=== PATIENT | female | born 1975 | race Caucasian/White ===

== ENCOUNTER → 2018-05-16 | Outpatient (CLI) | payer MEDICAID ==
[~2018-05-16] MED LIST: ACE3 PO; ASPI-692 PO; HYDR-4309 PO; IBU800 PO; IBUP600T22 PO; IBUP800T37 PO; LOR5/325 PO; METH-543 PO; ONDA4TAB PO; OXYC-865 PO; PANT40TA65 PO; TIZA4CAP3 PO; TRAM-420 PO
--- NOTE | 2018-05-19 17:25 | RADIOLOGY IMAGING REPORT ---
FACILITY: [facility] [place] PATIENT NAME: SHAKIR PALUMBO : [id number] MR: [id number] V: [id number] EXAM DATE: ORDERING PHYSICIAN: YASMIN JOHNSON TECHNOLOGIST: Alexa Romo PROCEDURE:BILATERAL DIGITAL SCREENING MAMMOGRAM WITH CAD ASSISTED INTERPRETATION & 3D TOMOSYNTHESIS COMPARISON:None this is the patient's baseline mammogram. INDICATIONS:screening FINDINGS: Moderately dense fibroglandular tissue is seen throughout the breasts. In the upper outer quadrant of the Left breast in the middle 1/3 there is a nodular density could appear an inter mammary lymph node although correlation with Left breast Ultrasound is recommended DIAGNOSTIC CATEGORY 0--INCOMPLETE: NEED ADDITIONAL IMAGING EVALUATION. RECOMMENDATIONS: ULTRASOUND: LEFT BREAST. IMPRESSION: BIRADS 0: Incomplete. Left breast Ultrasound recommended as described. Dictated by: Hien Jaime M.D. on 05/19/2018 at 15:30 Transcribed by: LUCIA on 05/19/2018 at 15:47 Approved by: Hien Jaime M.D. on 05/19/2018 at 17:24 [facility]
== END ==
LOC: MAMO 02:56 → EDSTATUS 14:04
PROVIDERS: ATTEND Physician Assistant
DX: Z12.31 Encounter for screening mammogram for malignant neoplasm of breast (principal); R92.8 Other abnormal and inconclusive findings on diagnostic imaging of breast
CPT/HCPCS: 77063; 77067

== ENCOUNTER → 2018-05-19 | Outpatient (CLI) | payer MEDICAID ==
--- NOTE | 2018-05-19 16:49 | RADIOLOGY IMAGING REPORT ---
FACILITY: [facility] PATIENT NAME: Janee Peñaloza : 1975 MR: [id number] V: [id number] EXAM DATE: ORDERING PHYSICIAN: EMMA ESCOBAR TECHNOLOGIST: Location: [facility] [place] Patient: Janee Peñaloza : 1975 Visit/Account:[id number] Date of Sevice: 05/19/2018 Exam type: SOFT TISSUE HEAD NECK History: Left neck mass getting larger over last two years Comparison: None. Findings: Numerous sonographic images were submitted right left lateral aspects of the neck. No sonographic ab normality was demonstrated in the location of patient's apparent palpable findings. There is however a 1.4 x 1.2 x 1.1 cm solid hypoechoic mildly hypervascular nodule inferior aspect the left lobe. No pathologic-appearing adenopathy was demonstrated IMPRESSION: 1. No sonographic abnormality demonstrated in location of patient's apparent palpable abnormality al owen the left-sided the neck. If this remains of clinical concern a CT of the neck with contrast is r ecommended Incidental note of a 1.4 cm mildly hypervascular solid mass left lobe of the thyroid for which ultras ound-guided fine-needle aspiration could be performed Report Dictated By: Hien Jaime MD at 05/19/2018 4:42 PM Report E-Signed By: Hien Jaime MD at 05/19/2018 4:45 PM WSN:[id number]
== END ==
LOC: US 01:14
PROVIDERS: ATTEND Physician Assistant
DX: E04.1 Nontoxic single thyroid nodule (principal)
CPT/HCPCS: 76536

== ENCOUNTER → 2018-05-21 | Outpatient (CLI) | payer MEDICAID ==
--- NOTE | 2018-05-22 08:55 | RADIOLOGY IMAGING REPORT ---
FACILITY: [facility] PATIENT NAME: SHAKIR PALUMBO : [id number] MR: [id number] V: [id number] EXAM DATE: [id number] ORDERING PHYSICIAN: EMMA ESCOBAR TECHNOLOGIST: Greyson Ramirez RDMS, RD PROCEDURE:US LEFT BREAST COMPARISON:Left mammogram 05/16/18. INDICATIONS:FURTHER EVAL FINDINGS: There are multiple small cysts identified in the upper outer quadrant of the Left breast in the 2:30, 1, & 2 o'clock positions of the Left breast likely accounting for the nodular density seen on the recent mammogram. Specifically the 2 o'clock nodule measuring 7 x 5 x 5mm likely accounts for the mammographic finding. DIAGNOSTIC CATEGORY 2--BENIGN FINDING. RECOMMENDATIONS: ROUTINE MAMMOGRAM AND CLINICAL EVALUATION. IMPRESSION: BIRADS 2: Benign finding. There are multiple cysts in the upper outer quadrant of the Left breast likely accounting for the mammographic findings. Dictated by: Hien Jaime M.D. on 05/21/2018 at 15:59 Transcribed by: LUCIA on 05/22/2018 at 7:56 Approved by: Hien Jaime M.D. on 05/22/2018 at 8:54 [facility]
== END ==
LOC: US 14:53
PROVIDERS: ATTEND Physician Assistant
DX: N60.02 Solitary cyst of left breast (principal)

== ENCOUNTER → 2018-05-26 | Outpatient (CLI) | payer MEDICAID ==
[2018-05-26 12:10] LABS: INR 0.94
--- NOTE | 2018-05-26 15:33 | RADIOLOGY IMAGING REPORT ---
FACILITY: [facility] PATIENT NAME: Janee Peñaloza : 1975 MR: [id number] V: [id number] EXAM DATE: ORDERING PHYSICIAN: EMMA ESCOBAR TECHNOLOGIST: Location: [facility] [place] Patient: Janee Peñaloza : 1975 Visit/Account:[id number] Date of Sevice: 05/26/2018 Exam type: THYROID BIOPSY FINE NEEDLE ASP History: Left thyroid nodule Comparison: Ultrasound soft tissues of the neck May 19, 2018. Findings: Informed consent was obtained. The left-sided patient's neck was prepped and draped usual sterile fa shion. Local anesthesia was accomplished with 1% lidocaine. Under sonographic guidance four 25-gaug e FNA biopsies were obtained through the hypoechoic mass in the lateral aspect left lobe the thyroid. The samples were given to the medical technologist for processing. The procedure was accomplishe d without apparent cortication. IMPRESSION: 1. Successful sonographically guided FNA biopsy of the solid mass lateral aspect left lobe of the th yroid Report Dictated By: Hien Jaime MD at 05/26/2018 3:27 PM Report E-Signed By: Hien Jaime MD at 05/26/2018 3:29 PM SILVION:LUISA
== END ==
LOC: US 01:50
PROVIDERS: ATTEND Physician Assistant
DX: E04.1 Nontoxic single thyroid nodule (principal)
CPT/HCPCS: 10022; 36415; 76942; 85610; 88104; 88172

== ENCOUNTER → 2018-06-11 | Outpatient (CLI) | payer MEDICAID ==
[~2018-06-11] MED LIST changes: +IOPAMIDOL 76% 75 ML INFUS BTL 75 ML ONE
--- NOTE | 2018-06-11 11:31 | RADIOLOGY IMAGING REPORT ---
FACILITY: [facility] PATIENT NAME: Janee Peñaloza : 1975 MR: [id number] V: [id number] EXAM DATE: ORDERING PHYSICIAN: GANGA WARD TECHNOLOGIST: Location: [facility] [place] Patient: Janee Peñaloza : 1975 Visit/Account:[id number] Date of Sevice: 06/11/2018 EXAMINATION: CT neck without IV contrast CT neck with IV contrast HISTORY: Left neck mass overlying the sternocleidomastoid muscle. TECHNIQUE: Axial CT of the neck without and with IV contrast. Sagittal and coronal reformats. One of the following dose optimization techniques was utilized in the performance of this exam: Autom ated exposure control; adjustment of the mA and/or kV according to the patient's size; or use of an i terative reconstruction technique. Specific details can be referenced in the facility's radiology C T exam operational policy. CONTRAST: 75 mL of IV Isovue-370 COMPARISON: Thyroid ultrasound dated 05/19/2018. FINDINGS: Masses/lesions: 9 x 4.2 x 2.2 cm lipoma underlying the palpable marker in the left posterior neck. Left posterior thyroid nodule measuring approximately 1.3 cm. Airway: Normal. Lymph nodes: Negative. Vessels: Negative. Musculoskeletal / Body wall: Degenerative disc disease at C5-C6. Mild convex leftward curvature of t he cervical spine. Visualized orbits / brain / paranasal sinuses: Small retention cyst or polyp in the right maxillary s inus. Rightward nasal septal deviation. The included intracranial structures are within normal limi ts. Upper chest: Negative. IMPRESSION: 1. 9 x 4.2 x 2.2 cm lipoma in the left posterior lateral neck underlying the palpable marker. 2. Left posterior thyroid nodule measuring approximately 1.3 cm. No significant change compared wit h the recent ultrasound. 3. Degenerative disc disease at C5-C6. Mild convex leftward curvature of the cervical spine. 4. Rightward nasal septal deviation. Small retention cyst or polyp in the right maxillary sinus. Report Dictated By: Ritesh Bueno MD at 06/11/2018 11:04 AM Report E-Signed By: Ritesh Bueno MD at 06/11/2018 11:27 AM WSN:[id number]
== END ==
LOC: CT 02:27
PROVIDERS: ATTEND Surgery
DX: D17.0 Benign lipomatous neoplasm of skin and subcutaneous tissue of head, face and neck (principal); E04.1 Nontoxic single thyroid nodule; M50.322 Other cervical disc degeneration at C5-C6 level; J34.2 Deviated nasal septum; J33.8 Other polyp of sinus
CPT/HCPCS: 70492; Q9967

== ENCOUNTER 2018-07-03 09:56 | Emergency (ER) | payer MEDICAID ==
[~2018-07-03 09:56] MED LIST changes: +ASPI1TAB35 PO; +ESCI20TA38 PO; -IOPAMIDOL 76% 75 ML INFUS BTL 75 ML ONE
--- NOTE | 2018-07-03 09:58 | ER Report ---
History and Physical Time Seen By MD: 09:58 HPI/ROS CHIEF COMPLAINT: Hymenoptera sting HISTORY OF PRESENT ILLNESS: Patient is a 42-year-old female with reported past medical history who states she was moving a rug and disturbed a yellow jacket nest and received multiple stings around the neck face and upper chest. She denies any difficulty breathing but she has having a localized reaction to itching and pain. REVIEW OF SYSTEMS: Respiratory: No cough, no dyspnea. Cardiovascular: No chest pain, no palpitations. Gastrointestinal: No vomiting, no abdominal pain. Musculoskeletal: No back pain. Skin: Multiple Hymenoptera stings Allergies: Coded Allergies: hydrocodone (Verified Adverse Reaction, Mild, NAUSEA/VOMITING, 07/03/18) Home Meds Active Scripts Prednisone (PREDNISONE) 20 Mg Tablet, 60 MG PO QDAY, #12 TAB 0 Refills start on 07/04/18 Prov:UMANG LEE MD 07/03/18 Oxycodone Hcl/Acetaminophen (PERCOCET 5-325 MG TABLET) 1 Each Tablet, 1 EACH PO Q4H for PAIN, #15 TAB 0 Refills Prov:UMANG LEE MD 07/03/18 Reported Medications Aspirin/Acetaminophen/Caffeine (EXCEDRIN EXTRA STRENGTH CAPLET) 1 Each Tablet, 1 EACH PO PRN 06/17/18 Escitalopram Oxalate (LEXAPRO) 20 Mg Tablet, 20 MG PO QDAY, TAB 06/17/18 Past Medical/Surgical History Noncontributory towards this chief complaint Hx Smoking: No Smoking Status: Never Smoker Exposure to Second Hand Smoke?: No Hx Substance Use Disorder: No Hx Alcohol Use: No Constitutional Vital Sign - Last 24 Hours 07/03/18 09:59 Temp 98.8 Pulse 93 Resp 16 B/P (MAP) 131/80 Pulse Ox 95 O2 Delivery Room Air Physical Exam General Appearance: The patient is alert, has no immediate need for airway protection and no signs of toxicity. Eyes: Pupils equal and round no pallor or injection. Conjunctiva clear ENT, Mouth: Mucous membranes are moist. Respiratory: There are no retractions, lungs are clear to auscultation. Cardiovascular: Regular rate and rhythm. Gastrointestinal: Abdomen is soft and non tender, no masses, bowel sounds normal. Neurological: Awake and alert Skin: Patient with multiple Hymenoptera stings around the neck scalp and face. Patient has localized reactions. Musculoskeletal: Neck is supple non tender. Extremities are nontender, nonswollen and have full range of motion. Medical Decision Making ED Course/Re-evaluation ED Course Patient with localized reactions. We'll treat with oral Benadryl, Pepcid, prednisone and Motrin and observed in the emergency department for worsening of symptoms. 07/03/2018 10:56:14 am patient observed in the emergency department for approximately one hour. No further respiratory symptoms. She is complaining of some discomfort pain from the hymenoptera stings. Plan will be to continue [id number] Benadryl I will prescribe prednisone and a short course of opiate pain medication. Decision to Disposition Date: Jul 03, 2018 Decision to Disposition Time: 10:59 Depart Departure Latest Vital Signs Vital Signs Date Time Temp Pulse Resp B/P (MAP) Pulse Ox O2 Delivery O2 Flow Rate FiO2 07/03/18 09:59 98.8 93 16 131/80 95 Room Air Impression: Primary Impression: Hymenoptera sting Condition: Improved Disposition: HOME OR SELF-CARE Referrals: EMMA ESCOBAR PA-C (PCP) New Scripts Prednisone (PREDNISONE) 20 Mg Tablet 60 MG PO QDAY, #12 TAB 0 Refills start on 07/04/18 Prov: UMANG LEE MD 07/03/18 Oxycodone Hcl/Acetaminophen (PERCOCET 5-325 MG TABLET) 1 Each Tablet 1 EACH PO Q4H for PAIN, #15 TAB 0 Refills Prov: UMANG LEE MD 07/03/18 Patient Instructions: Insect Bite or Sting (DC) Problem Qualifiers Primary Impression: Hymenoptera sting Encounter type: initial encounter Injury intent: accidental or unintentional Qualified Codes: T63.481A - Toxic effect of venom of other arthropod, accidental (unintentional), initial encounter UMANG LEE MD Jul 03, 2018 09:58
[2018-07-03] MEDS ORDERED: predniSONE 20 MG TAB PO ONE (10:05)
[2018-07-03] MEDS ORDERED: FAMOTIDINE 20 MG TAB PO ONE (10:05)
[2018-07-03] MEDS ORDERED: diphenhydrAMINE 25 MG CAP PO ONE (10:05)
[2018-07-03] MEDS ORDERED: IBUPROFEN 600 MG TAB PO ONE (10:05)
[2018-07-03] MEDS ORDERED: OXYC-865 PO (10:57)
[2018-07-03] MEDS ORDERED: PRED20TA6 PO (10:57)
[2018-07-03 11:00] VITALS: BP 114/67
== END 2018-07-03 11:12 | disposition home or self-care (01) ==
LOC: ER 10:01
DX: T63.461A Toxic effect of venom of wasps, accidental (unintentional), initial encounter (principal)
CPT/HCPCS: 99283; J7512; Q0163

== ENCOUNTER 2018-07-24 00:10 | Day surgery (SDC) | payer MEDICAID ==
[~2018-07-24] VITALS: Ht 167.6 cm; Wt 77.6 kg
[2018-07-24] VITALS (7 sets, daily range): BP systolic 120–129; BP diastolic 63–75
[~2018-07-24 00:10] MED LIST changes: +ETHI1TAB3 PO; +PRED20TA6 PO
[2018-07-24] MEDS ORDERED: LIDOCAINE/SOD BICARB 8.4% SYR ID ONE (06:45)
[2018-07-24] MEDS ORDERED: NORMOSOL R SOLN(*) 1000 ML BAG 1,000 ML IV PRN (06:45)
[2018-07-24] MEDS ORDERED: MIDAZOLAM 2 MG/2 ML VIAL IVP PRN (06:45)
[2018-07-24] MEDS ORDERED: FAMOTIDINE 20 MG TAB PO ONE (06:45)
[2018-07-24] MEDS ORDERED: ceFAZolin(*) 2GM/D5W 50ML 50 ML IVPB ONE (06:45)
[2018-07-24] MEDS ORDERED: LIDOCAINE MPF 1% 5 ML VIAL ONE (06:56)
[2018-07-24] MEDS ORDERED: PROPOFOL EMUL(*) 10MG/ML 20 ML 20 ML ONE (06:56)
[2018-07-24] MEDS ORDERED: METOCLOPRAMIDE 10 MG/2 ML SDV ONE (06:56)
[2018-07-24] MEDS ORDERED: DEXAMETHASONE SOD 4 MG/ML VIAL ONE (06:56)
[2018-07-24] MEDS ORDERED: ONDANSETRON 4 MG/2 ML VIAL ONE ×3 (06:56→11:34)
[2018-07-24] MEDS ORDERED: fentaNYL CITR 100 MCG/2 ML AMP ONE ×3 (07:10→09:11)
[2018-07-24] MEDS ORDERED: LIDO/EPI 1% MDV 1:100,000 20ML INFIL ONE (07:19)
[2018-07-24] MEDS ORDERED: ROPIVACAINE 0.5% 20 ML VIAL ONE (07:19)
[2018-07-24] MEDS ORDERED: DOCU-416 PO (09:11)
[2018-07-24] MEDS ORDERED: OXYC-854 PO (09:11)
--- NOTE | 2018-07-24 09:14 | Short(Outpt) Discharge Summary ---
Discharge Summary Reason for Hosp/Final Diag: (1) Mass in neck Status: Chronic Hospital Course & Plan: Left neck lipoma excised without problems. Departure Discharge to: Home, Self Care Discharge Instructions Home Meds Active Scripts Docusate Sodium (COLACE) 100 Mg Capsule, 1 CAP PO BID, #30 CAP 0 Refills TAKE WITH A FULL GLASS OF WATER Prov:GANGA WARD MD 07/24/18 Oxycodone Hcl/Acet 5/325 Mg (ENDOCET 5-325 TABLET) 1 Each Tablet, 1 TAB PO Q4H PRN for PAIN, #20 TAB 0 Refills Prov:GANGA WARD MD 07/24/18 Reported Medications Ethinyl Estradiol/Drospirenone (DONTRELL 28 TABLET) 1 Each Tablet, 1 EACH PO QDAY, TAB 07/15/18 Aspirin/Acetaminophen/Caffeine (EXCEDRIN EXTRA STRENGTH CAPLET) 1 Each Tablet, 1 EACH PO PRN 06/17/18 Escitalopram Oxalate (LEXAPRO) 20 Mg Tablet, 20 MG PO QDAY, TAB 06/17/18 Follow up Referrals: General Surgery - 08/08/18 @ Surgery, General with GANGA WARD MD You have a follow up appointment scheduled with Dr. Ward on 08/08/18, at 9:00am. Diet: Regular Activity: As Tolerated Special Instructions: You may remove the white surgical dressing on 07/26/18, then you can shower. After showering, leave the incision open to air but leave the steristrips in place until they fall off on their own. Do not immerse the incision for 2 weeks. You may apply ice to the incision as often as you would like for pain control and swelling. GANGA WARD MD Jul 24, 2018 09:14
--- NOTE | 2018-07-24 09:18 | Post Operative Progress Note ---
Post Operative Progress Note Date: Jul 24, 2018 Time: 09:15 Surgeon: Michaela Dictation number: [id number] Anesthesia: LMA by Dr. Gallegos Pre-Op Diagnosis: Left neck mass Post-Op Diagnosis: ESTRELLITA Findings: C/W lipoma Procedure(s): Excision of left neck mass Specimen Removed:(May be N/A): Left neck mass Complications: None Fluids: See anesthesia record Estimated Blood Loss: Minimal Date OP Note Dictated: Jul 24, 2018 Time OP Note Dictated: 09:16 GANGA WARD MD Jul 24, 2018 09:18
--- NOTE | 2018-07-24 14:11 | OPERATIVE REPORT 1 ---
EVENT DATE: July 24, 2018 SURGEON: Nando Jennings M.D. ANESTHESIOLOGIST: Wu Gallegos M.D. ANESTHESIA: LMA. PREOPERATIVE DIAGNOSIS Left neck mass. POSTOPERATIVE DIAGNOSIS Left neck mass. PROCEDURE PERFORMED Excision of left neck mass. COMPLICATIONS None. CONDITION Stable. ESTIMATED BLOOD LOSS Minimal. INDICATIONS This is a 42-year-old female who presented to my office with a mass overlying her right left sternocleidomastoid muscle. I got a CT scan just to assess the extent of the mass and determine how deep it went and it was consistent with a benign lipoma that laid superficial to her left sternocleidomastoid muscle. She was requesting to have it removed. DESCRIPTION OF PROCEDURE The patient was brought to the operating room and placed supine on the operating table. LMA anesthesia was administered and the left neck was prepped and draped in the sterile fashion. A time-out was completed and I made a ryan on her skin in line parallel with the skin lines overlying the mass and then anesthetized the skin with 0.5 ropivacaine plain. I made a linear incision overlying the mass where I marked the skin and dissected to the dermis and then the subcutaneous fat. I then used a combination of blunt and electrocautery dissection to get completely around the mass. It did not deliver itself as a lot of lipomas do and it was very interdigitated with the tissues. Ultimately, I was able to dissect it away and it was laying right on the sternocleidomastoid muscle. It was passed off the field and the wound was made hemostatic with pressure and electrocautery and then irrigated and dried. I placed interrupted 3-0 Vicryl deep sutures to close down the resulting pocket. The skin was closed with interrupted 3-0 Vicryl deep dermal sutures and 4-0 Monocryl running subcuticular sutures. The skin was cleaned and dried and steri-strips were applied followed by a sterile surgical dressing. The patient was awakened from LMA and transported to the recovery room in stable condition, having tolerated the procedure without any apparent problems. [place]
[2018-07-25] MEDS ORDERED: OXYC-854 PO (10:15)
[2018-07-25] MEDS ORDERED: ONDANSETRON 4 MG/2 ML VIAL IVP ONE (10:40)
[2018-07-30] MEDS ORDERED: GABA-547 PO (16:24)
[2018-07-30] MEDS ORDERED: GABA-549 PO (16:24)
[2018-07-30] MEDS ORDERED: OXYC-854 PO (16:24)
== END 2018-07-24 10:07 | disposition home or self-care (01) ==
LOC: OR 00:10
PROVIDERS: ATTEND Surgery
DX: D17.0 Benign lipomatous neoplasm of skin and subcutaneous tissue of head, face and neck (principal)
CPT/HCPCS: 21552; 81025; 88305; J1100; J2001; J2250; J2405; J2704; J2765; J2795; J3010; J0690

== ENCOUNTER → 2018-12-22 | Outpatient (CLI) | payer MEDICAID ==
[~2018-12-22] MED LIST changes: +DOCU-416 PO; +GABA-547 PO; +GABA-549 PO; -HYDR-4309 PO; +HYDR-653 PO; +OXYC-854 PO; +OXYC5TAB38 PO
--- NOTE | 2018-12-22 10:46 | RADIOLOGY IMAGING REPORT ---
FACILITY: [facility] [place] PATIENT NAME: Janee Peñaloza : 1975 MR: [id number] V: [id number] EXAM DATE: ORDERING PHYSICIAN: GANGA WARD TECHNOLOGIST: Location: [facility] Patient: Janee Peñaloza : 1975 Visit/Account:[id number] Date of Sevice: 12/22/2018 THYROID HISTORY: Thyroid nodule COMPARISON: Thyroid ultrasound May 19, 2018 FINDINGS: SIZE: Right lobe: 3.9 x 1 x 1.1 cm Left lobe: 4.2 x 1.4 x 1.2 cm Isthmus: 2.2 mm PARENCHYMA: Homogeneous. NODULES: Right lobe: * None discrete. Left lobe: * There is a well-circumscribed hypervascular hypoechoic nodule in the inferior left lobe measuring 1.5 x 1 x 1.1 cm that appears well totally unchanged in size when measured in the same tissue planes. This nodule has apparently been previously biopsied. Correlation with biopsy results needed Isthmus: * None discrete. VASCULARITY: Increased bilaterally ADDITIONAL FINDINGS: None. IMPRESSION: Is a well-circumscribed hypervascular hypoechoic nodule inferior left lobe appears well totally uncha nged when compared to the prior study REFERENCE: 2015 [place] [employer] Management Guidelines for Adult Patients with Thyroid Nodules and D ifferentiated Thyroid Cancer: The [place] Thyroid Association Guidelines Task Force on Thyroid Nodul es and Differentiated Thyroid Cancer. SONOGRAPHIC PATTERNS: * Benign: Purely cystic nodules (no solid component); estimated risk of malignancy <1 percent; no bi opsy recommended. * Very Low Suspicion: Spongiform or partially cystic nodules without any of the sonographic features described in low, intermediate, or high suspicion patterns; estimated risk of malignancy <3 percent; consider FNA at > 2 cm (Observation without FNA is also a reasonable option). * Low Suspicion: Isoechoic or hyperechoic solid nodule, or partially cystic nodule with eccentric so lid areas, without microcalcification, irregular margin or ETE (extra-thyroidal extension), or taller than wide shape; estimated risk of malignancy 5-10 percent; recommend FNA at >1.5 cm. * Intermediate Suspicion: Hypoechoic solid nodule with smooth margins without microcalcifications, E TE (extra-thyroidal extension), or taller than wide shape; estimated risk of malignancy 10-20 percent ; recommend FNA at > 1 cm. * High Suspicion: Solid hypoechoic nodule or solid hypoechoic component of a partially cystic nodule with one or more of the following features: irregular margins (infiltrative, microlobulated), microc alcifications, taller than wide shape, rim calcifications with small extrusive soft tissue component, evidence of ETE (extra-thyroidal extension); estimated risk of malignancy >70-90 percent; recommend FNA at > 1 cm. NOTES: * Although a sonographically suspicious subcentimeter thyroid nodule without evidence of extrathyroi julio extension or sonographically suspicious lymph nodes may be observed with close sonographic follow -up rather than pursuing immediate FNA, patient age and preference may modify decision-making. A > 50% interval increase in nodule volume and/or development of new suspicious sonographic features are felt to be a valid reasons for potential re-aspiration of a nodule previously shown to have benig n FNA cytology. Report Dictated By: Hien Jaime MD at 12/22/2018 10:34 AM Report E-Signed By: Hien Jaime MD at 12/22/2018 10:43 AM WSN:[email or web address]
== END ==
LOC: US 00:33
PROVIDERS: ATTEND Surgery
DX: E04.1 Nontoxic single thyroid nodule (principal)
CPT/HCPCS: 76536

== ENCOUNTER 2019-01-09 13:51 | Emergency (ER) | payer MEDICAID ==
[~2019-01-09 13:51] MED LIST changes: +ALBU8.5H IH; +OSE75 PO
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
[2019-01-09] MEDS ORDERED: KETOROLAC 60 MG/2 ML VIAL IM ONE (14:15)
--- NOTE | 2019-01-09 14:59 | RADIOLOGY IMAGING REPORT ---
FACILITY: [facility] PATIENT NAME: Janee Peñalzoa : 1975 MR: [id number] V: [id number] EXAM DATE: ORDERING PHYSICIAN: ERNA UNDERWOOD TECHNOLOGIST: Location: [facility] [place] Patient: Janee Peñaloza : 1975 Visit/Account:[id number] Date of Sevice: 01/09/2019 Exam type: CHEST PA LAT History: trauma Comparison: None. Findings: The lungs are free of acute effusions, infiltrates or edema. There is no evidence of a pneumothorax or pneumomediastinum. The cardiac silhouette is normal in size. The trachea is in midline. There i s a gentle levoconvex scoliosis of the thoracolumbar spine IMPRESSION: 1. No acute cardiac pulmonary process is seen Report Dictated By: Hien Jaime MD at 01/09/2019 2:53 PM Report E-Signed By: Hien Jaime MD at 01/09/2019 2:54 PM WSN:[id number]
--- NOTE | 2019-01-09 15:14 | RADIOLOGY IMAGING REPORT ---
FACILITY: [facility] [place] PATIENT NAME: Janee Peñaloza : 1975 MR: [id number] V: [id number] EXAM DATE: ORDERING PHYSICIAN: ERNA UNDERWOOD TECHNOLOGIST: Location: [facility] Patient: Janee Peñaloza : 1975 Visit/Account:[id number] Date of Sevice: 01/09/2019 CT BRAIN NO CONTRAST History: trauma TECHNIQUE: Contiguous angled axial images were obtained from the vertex through the base of the sku ll without intravenous contrast. One of the following dose optimization techniques was utilized in e performance of this exam: Automated exposure control; adjustment of the mA and/or kV according to t he patient's size; or use of an iterative reconstruction technique. Specific details can be referen [place] in the facility's radiology CT exam operational policy. COMPARISON STUDIES: none FINDINGS: Ventricles / sulci / fissures: Negative. Masses / hemorrhage / midline shift: Negative. Intra-axial findings: Normal. Extra-axial fluid collections: Negative. Intracranial vasculature and dural sinuses: Negative. Skull base / calvarium: Negative. Scalp: negative Visualized mastoid air cells / paranasal sinuses: Minimal mucoperiosteal thickening noted in the maxi llary sinuses. Orbits: Negative IMPRESSION: Minimal maxillary sinus mucoperiosteal thickening Otherwise normal study. No evidence of acute trauma Report Dictated By: Ventura Briceno MD at 01/09/2019 3:07 PM Report E-Signed By: Ventura Briceno MD at 01/09/2019 3:11 PM WSN:[id number]
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
--- NOTE | 2019-01-09 15:22 | RADIOLOGY IMAGING REPORT ---
FACILITY: [facility] PATIENT NAME: Janee Peñaloza : 1975 MR: [id number] V: [id number] EXAM DATE: ORDERING PHYSICIAN: ERNA UNDERWOOD TECHNOLOGIST: Location: [facility] Patient: Janee Peñaloza : 1975 Visit/Account:[id number] Date of Sevice: 01/09/2019 CT VERTEBRA CERVICAL (NON CON) History: trauma COMPARISON STUDIES: 10/12/[address] TECHNIQUE: Contiguous axial images were obtained from the skull base through the upper thoracic spin e without IV contrast administration. Coronal and sagittal reformatted images were obtained from the axial source data. One of the following dose optimization techniques was utilized in the performance of this exam: Automated exposure control; adjustment of the mA and/or kV according to the patient's s ize; or use of an iterative reconstruction technique. Specific details can be referenced in the regional medical center's radiology CT exam operational policy. FINDINGS: Alignment: Cervical spine is aligned. No evidence of subluxation. Vertebral bodies: Osseous structures intact. No evidence of fracture. Discs: Again seen is C5-6 disc space narrowing which is progressed slightly since the previous examin ation. Remaining disc space height is well-maintained Para-vertebral soft tissues: negative Visualized lung / mediastinum: Visualized lung parenchyma normal. No evidence of pneumothorax. IMPRESSION: C5-C6 degenerative disc disease. Exam otherwise normal. No evidence of acute trauma Report Dictated By: Ventura Briceno MD at 01/09/2019 3:15 PM Report E-Signed By: Ventura Briceno MD at 01/09/2019 3:18 PM WSN:[id number]
[2019-01-09] MEDS ORDERED: TRAM-420 PO (16:10)
[2019-01-09 17:08] VITALS: BP 112/80
== END 2019-01-09 17:36 | disposition home or self-care (01) ==
LOC: ER 14:00
DX: S00.83XA Contusion of other part of head, initial encounter (principal); R60.0 Localized edema; Y04.2XXA Assault by strike against or bumped into by another person, initial encounter
CPT/HCPCS: 70450; 70486; 71046; 72125; 96372; 99284; J1885; L0172

== ENCOUNTER 2019-01-18 14:08 | Emergency (ER) | payer MEDICAID ==
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
[2019-01-18] MEDS ORDERED: IBUPROFEN 800 MG TAB PO ONE (14:25)
[2019-01-18] MEDS ORDERED: BUPR-126 PO (14:27)
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
[2019-01-18] MEDS ORDERED: TRAM-420 PO (15:48)
[2019-01-18 16:22] VITALS: BP 132/82
== END 2019-01-18 16:22 | disposition home or self-care (01) ==
LOC: ER 14:30
DX: M25.532 Pain in left wrist (principal); M25.531 Pain in right wrist
CPT/HCPCS: 73110; 99283; L3908